=== PATIENT | male | born 1980 | race Caucasian/White ===

== ENCOUNTER 2020-07-10 16:06 | Outpatient (RCR) | payer OTHER, SELFPAY ==
[2020-07-10] MEDS: COVID-19 VACC, MRNA(PFIZER)/PF 30 MCG/0.3 ML SYRINGE IM (16:35)
== END 2020-07-10 23:59 ==
LOC: IMMUN 16:06
PROVIDERS: Referring Provider Family Medicine; Visit Provider Family Medicine
DX: Z23 Encounter for immunization (principal)
CPT/HCPCS: 0001A; 91300